=== PATIENT | male | born 1935 | race Caucasian/White ===

== ENCOUNTER 2017-08-19 15:27 | Inpatient (IN) | payer MEDICARE, OTHER ==
[~2017-08-19] VITALS: Ht 177.8 cm; Wt 113.3 kg
[2017-08-19 15:57] LABS: BASOPHILS % (AUTO) 0.3 % (0-1); EOSINOPHILS # (AUTO) 0.2 X10'3 (0-0.9); EOSINOPHILS % (AUTO) 1.9 % (0-6); HEMATOCRIT 38.7 % (42.0-52.0); HEMOGLOBIN 13.8 g/dl (14.0-17.9); LYMPHOCYTES # (AUTO) 1.3 X10'3 (1.1-4.8); LYMPHOCYTES % (AUTO) 13.3 % (21-51); MEAN CORPUSCULAR HEMOGLOBIN 34.1 PG (27.0-31.0); MEAN CORPUSCULAR HGB CONC 35.5 % (33.0-36.5); MEAN PLATELET VOLUME 8.8 FL (7.4-10.4); MONOCYTES # (AUTO) 0.6 X10'3 (0-0.9); NEUTROPHILS # (AUTO) 7.8 X10'3 (1.8-7.7); NEUTROPHILS % (AUTO) 78.5 % (42-75); PLATELET COUNT 197 X10'3 (140-440); RED BLOOD COUNT 4.03 X10'6 (4.70-6.10); RED CELL DISTRIBUTION WIDTH 13.1 % (11.5-14.5); WHITE BLOOD COUNT 9.9 X10'3 (4.5-11.0)
[2017-08-19 16:09] LABS: PARTIAL THROMBOPLASTIN TIME 25 SECONDS (22-32); PROTHROMBIN TIME 10.4 SECONDS (9.0-12.0)
[2017-08-19 16:15] LABS: ALANINE AMINOTRANSFERASE 47 U/L (12-78); ALBUMIN 3.7 G/DL (3.4-5.0); ALKALINE PHOSPHATASE 66 IU/L (46-116); ANION GAP 10 (8-16); ASPARTATE AMINO TRANSFERASE 35 U/L (10-37); BILIRUBIN,TOTAL 0.4 MG/DL (0.1-1.0); BLOOD UREA NITROGEN 30 MG/DL (7-18); BUN/CREATININE RATIO 18.2 (5.4-32.0); CALCIUM 9.2 MG/DL (8.5-10.1); CHLORIDE 104 MMOL/L (99-107); CREATININE 1.65 MG/DL (0.60-1.10); GLUCOSE 168 MG/DL (70-104); POTASSIUM 4.3 MMOL/L (3.5-5.1); SODIUM 142 MMOL/L (135-145); TOTAL CARBON DIOXIDE 27.6 MMOL/L (24-32); TOTAL PROTEIN 7.4 G/DL (6.4-8.2); TROPONIN I < 0.04 NG/ML (0.0-0.05); eGFR 40 ML/MIN
[2017-08-19] MEDS ORDERED: dextrose 5%-1/2 normal saline 1,000 ML IV SCH (17:39)
[2017-08-19] MEDS: normal saline 1000ml 1,000 ML IV SCH (17:39)
[2017-08-19] MEDS ORDERED: acetaminophen 325mg tablet PO PRN (17:40)
[2017-08-19] MEDS ORDERED: mag hydrox/Alum hydrox/simeth 30ml oral suspension PO PRN (17:40)
[2017-08-19] MEDS ORDERED: ondansetron/PF 4mg/2ml inj IV PRN (17:40)
[2017-08-19] MEDS ORDERED: magnesium hydroxide 30ml (MOM) UD suspension PO PRN (17:40)
[2017-08-19] MEDS ORDERED: OLME40TA13 PO (18:08)
[2017-08-19] MEDS ORDERED: FERR1GRA PO (18:08)
[2017-08-19] MEDS ORDERED: SYN0.088T PO (18:08)
[2017-08-19] MEDS ORDERED: P EP PO (18:08)
[2017-08-19] MEDS ORDERED: VERA120T7 PO (18:08)
[2017-08-19 18:15] LABS: HEMOGLOBIN A1C 6.6 % (4.5-6.2)
[2017-08-19 20:10] LABS: CLARITY,URINE CLEAR (Clear); COLOR,URINE YELLOW (Yellow); GLUCOSE, URINE NEGATIVE (Neg); KETONES,URINE TRACE mg/dl (Neg); LEUKOCYTE ESTERASE ,URINE NEGATIVE (Neg); NITRITES, URINE NEGATIVE (Neg); OCCULT BLOOD,URINE NEGATIVE (Neg); PROTEIN,URINE NEGATIVE (Neg); UROBILINOGEN,URINE 0.2 E.U/dL (0.2-1.0)
[2017-08-19 20:12] LABS: UA COLLECTION TYPE CLN CATCH MIDSTREAM
[2017-08-19 20:41] VITALS: BP 130/63
[2017-08-19 22:00] VITALS: BP 114/49
[2017-08-20 02:00] VITALS: BP 152/59
[2017-08-20 06:00] VITALS: BP 150/65
[2017-08-20 07:00] LABS: CHOLESTEROL 255 MG/DL (0-200); HDL CHOLESTEROL 32 MG/DL (35-60); LDL CHOLESTEROL 163 MG/DL (50-100); TRIGLYCERIDES 228 MG/DL (20-135)
[2017-08-20] MEDS: [UNRECOGNIZED DRUG - OTHER] PO SCH (08:00)
[2017-08-20] MEDS ORDERED: apixaban 2.5mg tablet PO SCH ×3 (08:50→20:00)
[2017-08-20] MEDS ORDERED: atorvastatin 20mg tablet PO SCH (08:50)
[2017-08-20 10:00] VITALS: BP 133/33
[2017-08-20] MEDS: atorvastatin 20mg tablet PO SCH (11:00)
[2017-08-20] MEDS: levoTHYROXINE 100mcg tablet PO SCH (11:01)
[2017-08-20] MEDS: losartan 50mg tablet PO SCH (11:01)
[2017-08-20] MEDS: aspirin 81mg tablet.DR PO SCH (11:01)
[2017-08-20 18:00] VITALS: BP 117/49
[2017-08-20] MEDS: normal saline 1000ml 1,000 ML IV SCH ×2 (20:58→22:15)
[2017-08-20] MEDS: apixaban 2.5mg tablet PO SCH (20:58)
[2017-08-20 22:00] VITALS: BP 123/60
[2017-08-21 02:29] VITALS: BP 161/67
[2017-08-21 06:00] VITALS: BP 149/68
[2017-08-21] MEDS: atorvastatin 20mg tablet PO SCH (07:45)
[2017-08-21] MEDS: aspirin 81mg tablet.DR PO SCH (07:45)
[2017-08-21] MEDS: levoTHYROXINE 100mcg tablet PO SCH (07:45)
[2017-08-21] MEDS: loratadine/pseudoephedrine TAB.SR.12Hour PO SCH (07:45)
[2017-08-21] MEDS: apixaban 2.5mg tablet PO SCH ×2 (07:45→19:36)
[2017-08-21] MEDS: losartan 50mg tablet PO SCH (07:45)
[2017-08-21] MEDS: [UNRECOGNIZED DRUG - OTHER] PO SCH (07:58)
[2017-08-21] MEDS ORDERED: amLODIPine 5mg tablet PO SCH (08:00)
[2017-08-21] MEDS: amLODIPine 5mg tablet PO SCH (08:40)
[2017-08-21] MEDS ORDERED: amLODIPine 5mg tablet PO ONE (08:55)
[2017-08-21] MEDS ORDERED: dextrose 5%-1/4 normal saline 1,000 ML IV SCH (09:15)
[2017-08-21 10:00] VITALS: BP 102/42
[2017-08-21] MEDS: normal saline 1000ml 1,000 ML IV SCH (10:05)
[2017-08-21 10:27] LABS: ALBUMIN 3.1 G/DL (3.4-5.0); ANION GAP 8 (8-16); BLOOD UREA NITROGEN 26 MG/DL (7-18); BUN/CREATININE RATIO 18.1 (5.4-32.0); CALCIUM 8.3 MG/DL (8.5-10.1); CHLORIDE 105 MMOL/L (99-107); CREATININE 1.44 MG/DL (0.60-1.10); GLUCOSE 179 MG/DL (70-104); POTASSIUM 4.1 MMOL/L (3.5-5.1); SODIUM 140 MMOL/L (135-145); TOTAL CARBON DIOXIDE 27.2 MMOL/L (24-32); eGFR 47 ML/MIN
[2017-08-21] MEDS: dextrose 5%-1/2 normal saline 1,000 ML IV SCH ×2 (13:18→23:56)
[2017-08-21 14:00] VITALS: BP 115/59
[2017-08-21 18:00] VITALS: BP 154/55
[2017-08-21] MEDS ORDERED: LORazepam 2 mg/ml vial IV PRN ×2 (20:45)
[2017-08-21 22:00] VITALS: BP 150/63
[2017-08-22 02:00] VITALS: BP 162/73
[2017-08-22] MEDS: normal saline 1000ml 1,000 ML IV SCH (02:51)
[2017-08-22 05:00] VITALS: BP 144/71
[2017-08-22] MEDS: [UNRECOGNIZED DRUG - OTHER] PO SCH (08:00)
[2017-08-22 08:57] VITALS: BP 123/60
[2017-08-22] MEDS: aspirin 81mg tablet.DR PO SCH (08:59)
[2017-08-22] MEDS: losartan 50mg tablet PO SCH (08:59)
[2017-08-22] MEDS: apixaban 2.5mg tablet PO SCH ×2 (08:59→19:38)
[2017-08-22] MEDS: loratadine/pseudoephedrine TAB.SR.12Hour PO SCH (08:59)
[2017-08-22] MEDS: levoTHYROXINE 100mcg tablet PO SCH (09:00)
[2017-08-22] MEDS: amLODIPine 5mg tablet PO SCH (09:00)
[2017-08-22] MEDS: atorvastatin 20mg tablet PO SCH (09:00)
[2017-08-22] MEDS: dextrose 5%-1/2 normal saline 1,000 ML IV SCH ×2 (09:01→19:38)
[2017-08-22 10:00] VITALS: BP 126/57
[2017-08-22 13:17] LABS: ALBUMIN 3.2 G/DL (3.4-5.0); ANION GAP 8 (8-16); BLOOD UREA NITROGEN 17 MG/DL (7-18); BUN/CREATININE RATIO 13.7 (5.4-32.0); CALCIUM 8.1 MG/DL (8.5-10.1); CHLORIDE 102 MMOL/L (99-107); CREATININE 1.24 MG/DL (0.60-1.10); GLUCOSE 166 MG/DL (70-104); POTASSIUM 4.1 MMOL/L (3.5-5.1); SODIUM 136 MMOL/L (135-145); TOTAL CARBON DIOXIDE 26.5 MMOL/L (24-32); eGFR 56 ML/MIN
[2017-08-22] MEDS ORDERED: iohexol 350MG/ML 100ml bottle IV ONE (14:57)
[2017-08-22 17:30] VITALS: BP 116/65
[2017-08-22 22:38] VITALS: BP 132/78
[2017-08-23] MEDS: dextrose 5%-1/2 normal saline 1,000 ML IV SCH (05:00)
[2017-08-23 07:00] VITALS: BP 147/72
[2017-08-23] MEDS: [UNRECOGNIZED DRUG - OTHER] PO SCH (08:00)
[2017-08-23] MEDS: loratadine/pseudoephedrine TAB.SR.12Hour PO SCH (08:15)
[2017-08-23] MEDS: apixaban 2.5mg tablet PO SCH (08:15)
[2017-08-23] MEDS: losartan 50mg tablet PO SCH (08:16)
[2017-08-23] MEDS: levoTHYROXINE 100mcg tablet PO SCH (08:16)
[2017-08-23] MEDS: amLODIPine 5mg tablet PO SCH (08:16)
[2017-08-23] MEDS: atorvastatin 20mg tablet PO SCH (08:17)
[2017-08-23] MEDS: aspirin 81mg tablet.DR PO SCH (08:26)
[2017-08-23 10:00] VITALS: BP 111/52
== END 2017-08-23 13:30 | DRG 65 ==
LOC: ER 15:28 → ED HOLD 17:39 → ORTHO 4S 19:49
PROVIDERS: ADMIT Internal Medicine; ATTEND Internal Medicine
PROC: B3251ZZ Computerized Tomography (CT Scan) of Bilateral Common Carotid Arteries using Low Osmolar Contrast (ICD-10-PCS; principal; 2017-08-22)
PROC: B32G1ZZ Computerized Tomography (CT Scan) of Bilateral Vertebral Arteries using Low Osmolar Contrast (ICD-10-PCS; 2017-08-22)
PROC: B3281ZZ Computerized Tomography (CT Scan) of Bilateral Internal Carotid Arteries using Low Osmolar Contrast (ICD-10-PCS; 2017-08-22)
DX: I63.232 Cerebral infarction due to unspecified occlusion or stenosis of left carotid arteries (principal); N17.9 Acute kidney failure, unspecified; I48.0 Paroxysmal atrial fibrillation; E11.9 Type 2 diabetes mellitus without complications; I10 Essential (primary) hypertension; G89.29 Other chronic pain; E03.9 Hypothyroidism, unspecified; E78.5 Hyperlipidemia, unspecified; M54.9 Dorsalgia, unspecified; K59.00 Constipation, unspecified; F17.200 Nicotine dependence, unspecified, uncomplicated; Z96.611 Presence of right artificial shoulder joint; Z96.612 Presence of left artificial shoulder joint; Z96.643 Presence of artificial hip joint, bilateral; Z96.653 Presence of artificial knee joint, bilateral; Z95.0 Presence of cardiac pacemaker; Z79.899 Other long term (current) drug therapy; Z80.9 Family history of malignant neoplasm, unspecified
CPT/HCPCS: 36415; 70450; 70496; 70498; 71045; 80048; 80053; 80061; 81003; 82948; 83036; 84439; 84443; 84484; 85025; 85610; 85730; 87070; 92616; 93005; 93306; 93880; 97110; 97116; 97161; 97530; 99285; A6212; J7030; Q9967

== ENCOUNTER 2017-10-29 17:49 | Inpatient (IN) | payer MEDICARE, OTHER ==
[~2017-10-29] VITALS: Ht 177.8 cm; Wt 95.5 kg
[~2017-10-29 17:49] MED LIST: FERR1GRA PO; OLME40TA13 PO; P EP PO; SYN0.088T PO; VERA120T7 PO
[2017-10-29] MEDS ORDERED: normal saline 1000ML IV soln IVB ONE (18:20)
[2017-10-29] MEDS ORDERED: ondansetron 4mg rapidly disintigrating tab PO ONE (18:20)
[2017-10-29 19:10] LABS: BASOPHILS % (AUTO) 0.2 % (0-1); EOSINOPHILS # (AUTO) 0.3 X10'3 (0-0.9); EOSINOPHILS % (AUTO) 2.1 % (0-6); HEMATOCRIT 36.8 % (42.0-52.0); HEMOGLOBIN 12.6 g/dl (14.0-17.9); LYMPHOCYTES # (AUTO) 0.8 X10'3 (1.1-4.8); LYMPHOCYTES % (AUTO) 6.6 % (21-51); MEAN CORPUSCULAR HEMOGLOBIN 33.1 PG (27.0-31.0); MEAN CORPUSCULAR HGB CONC 34.3 % (33.0-36.5); MEAN CORPUSCULAR VOLUME 96.4 FL (78-98); MEAN PLATELET VOLUME 9.3 FL (7.4-10.4); MONOCYTES # (AUTO) 0.7 X10'3 (0-0.9); MONOCYTES % (AUTO) 6.1 % (2-12); NEUTROPHILS # (AUTO) 10.2 X10'3 (1.8-7.7); PLATELET COUNT 206 X10'3 (140-440); RED BLOOD COUNT 3.81 X10'6 (4.70-6.10); RED CELL DISTRIBUTION WIDTH 13.2 % (11.5-14.5)
[2017-10-29 19:18] LABS: INR 1.1 INR; PROTHROMBIN TIME 11.8 SECONDS (9.0-12.0)
[2017-10-29 19:35] LABS: ALANINE AMINOTRANSFERASE 80 U/L (12-78); ALBUMIN 2.8 G/DL (3.4-5.0); ALBUMIN/GLOBULIN RATIO 0.7 (1.1-1.5); ALKALINE PHOSPHATASE 83 IU/L (46-116); ANION GAP 10 (8-16); ASPARTATE AMINO TRANSFERASE 53 U/L (10-37); BILIRUBIN,TOTAL 0.5 MG/DL (0.1-1.0); BLOOD UREA NITROGEN 24 MG/DL (7-18); BUN/CREATININE RATIO 18.5 (5.4-32.0); CALCIUM 9.1 MG/DL (8.5-10.1); CHLORIDE 103 MMOL/L (99-107); GLUCOSE 172 MG/DL (70-104); LIPASE 151 U/L (73-393); POTASSIUM 4.5 MMOL/L (3.5-5.1); SODIUM 138 MMOL/L (135-145); TOTAL CARBON DIOXIDE 24.6 MMOL/L (24-32); TOTAL PROTEIN 6.9 G/DL (6.4-8.2); eGFR 53 ML/MIN
[2017-10-29] MEDS ORDERED: piperacillin/tazo 3.375gm/50ml 50 ML IV ONE (22:00)
[2017-10-29] MEDS ORDERED: insulin Lispro (HumaLOG) vial - multi-dose SQ SCH (22:15)
[2017-10-29] MEDS ORDERED: dextrose ORAL solution 15 GM/59 ML bottle PO PRN ×2 (22:15)
[2017-10-29] MEDS ORDERED: dextrose 50%-water 50ml dispensing syringe IV PRN ×2 (22:15)
[2017-10-29] MEDS ORDERED: potassium Cl 40MEQ/NS 500ml 500 ML IV PRN ×2 (22:15)
[2017-10-29] MEDS ORDERED: mag hydrox/Alum hydrox/simeth 30ml oral suspension PO PRN (22:15)
[2017-10-29] MEDS ORDERED: glucagon, human recombinant 1mg kit SUBCUT PRN (22:15)
[2017-10-29] MEDS ORDERED: morphine 4 MG/ML inj SYRINge IV PRN ×2 (22:15)
[2017-10-29] MEDS ORDERED: magnesium hydroxide 30ml (MOM) UD suspension PO PRN (22:15)
[2017-10-29] MEDS ORDERED: ondansetron/PF 4mg/2ml inj IV PRN (22:15)
[2017-10-29] MEDS ORDERED: MESSAGE TO PHARMACY PO ONE (22:15)
[2017-10-29] MEDS ORDERED: potassium Cl 20 mEq SR tablet PO PRN ×2 (22:15)
[2017-10-29] MEDS ORDERED: magnesium 2GM in 50ml NS 50 ML IV PRN (22:15)
[2017-10-29] MEDS ORDERED: magnesium 4gm in 100ml NS 100 ML IV PRN (22:15)
[2017-10-29] MEDS ORDERED: acetaminophen 325mg tablet PO PRN (22:15)
[2017-10-29] MEDS ORDERED: magnesium Cl slow-release 64mg tablet PO PRN (22:15)
[2017-10-29] MEDS ORDERED: OLME40TA18 PO (23:35)
[2017-10-29] MEDS ORDERED: RIVA15TA PO (23:35)
[2017-10-29] MEDS ORDERED: VERA180T PO (23:35)
[2017-10-29] MEDS ORDERED: LEVO200T8 PO (23:35)
[2017-10-29] MEDS ORDERED: LORA10TA7 PO (23:38)
[2017-10-29] MEDS ORDERED: OMEP40CA37 PO (23:38)
[2017-10-29] MEDS ORDERED: CHOL5000 PO (23:38)
[2017-10-29] MEDS ORDERED: LORA-641 (23:38)
[2017-10-29] MEDS: normal saline 1000ml 1,000 ML IV SCH (23:41)
[2017-10-30 00:15] VITALS: BP 139/94
[2017-10-30 00:34] LABS: CLARITY,URINE CLEAR (Clear); COLOR,URINE YELLOW (Yellow); GLUCOSE, URINE NEGATIVE (Neg); KETONES,URINE TRACE mg/dl (Neg); LEUKOCYTE ESTERASE ,URINE NEGATIVE (Neg); NITRITES, URINE NEGATIVE (Neg); OCCULT BLOOD,URINE TRACE-INTACT (Neg); PROTEIN,URINE NEGATIVE (Neg); UROBILINOGEN,URINE 0.2 E.U/dL (0.2-1.0)
[2017-10-30 00:37] LABS: UA COLLECTION TYPE CLN CATCH MIDSTREAM
[2017-10-30 00:41] LABS: RBC,URINE 0-2 /HPF (0-2); SQUAMOUS EPITHELIAL CELL,UR FEW /LPF (FEW); URIC ACID CRYSTALS 2+ /HPF (NEGATIVE); WBC,URINE 0-4 /HPF (0-4)
[2017-10-30 00:42] LABS: BACTERIA,URINE FEW /HPF (Neg)
[2017-10-30] MEDS: metroNIDAZOLE-Flagyl 500mg/NS 100 ML IV SCH ×2 (00:51→08:01)
[2017-10-30] MEDS: normal saline 1000ml 1,000 ML IV SCH (00:52)
[2017-10-30] MEDS ORDERED: piperacillin/tazo 3.375gm/50ml 50 ML IV ONE (02:43)
[2017-10-30] MEDS: piperacillin/tazo 3.375gm/50ml 50 ML IV SCH ×4 (02:50→20:28)
[2017-10-30 05:00] VITALS: BP 129/69
[2017-10-30] MEDS: docusate sod 100mg capsule PO SCH ×2 (07:10→20:00)
[2017-10-30 07:11] LABS: MAGNESIUM 1.7 MG/DL (1.5-2.4); POTASSIUM 4.4 MMOL/L (3.5-5.1)
[2017-10-30] MEDS: enoxaparin 40mg/0.4ml syringe SQ SCH (07:11)
[2017-10-30] MEDS: pantoprazole 40mg Tablet.DR PO SCH (07:14)
[2017-10-30] MEDS: K and/or MAG REPLACEMENT MC SCH (08:00)
[2017-10-30 10:00] VITALS: BP_SYST 62
[2017-10-30] MEDS ORDERED: FERR325T32 PO (15:51)
[2017-10-30] MEDS ORDERED: OMEP20TA23 PO (15:56)
[2017-10-30] MEDS ORDERED: ERGO500014 PO (16:04)
[2017-10-30 17:00] VITALS: BP 133/58
[2017-10-30] MEDS: loratadine/pseudoephedrine TAB.SR.12Hour PO SCH (20:27)
[2017-10-30] MEDS: insulin glargine (Lantus) pen - multi-dose SQ SCH (21:00)
[2017-10-30 22:00] VITALS: BP 117/69
[2017-10-31] MEDS: piperacillin/tazo 3.375gm/50ml 50 ML IV SCH ×4 (01:29→19:57)
[2017-10-31] MEDS: normal saline 1000ml 1,000 ML IV SCH (03:35)
[2017-10-31 05:00] VITALS: BP 149/61
[2017-10-31 06:09] LABS: BASOPHILS % (AUTO) 0.3 % (0-1); EOSINOPHILS # (AUTO) 0.2 X10'3 (0-0.9); EOSINOPHILS % (AUTO) 2.3 % (0-6); HEMATOCRIT 30.6 % (42.0-52.0); HEMOGLOBIN 10.5 g/dl (14.0-17.9); LYMPHOCYTES % (AUTO) 12.1 % (21-51); MEAN CORPUSCULAR HEMOGLOBIN 32.9 PG (27.0-31.0); MEAN CORPUSCULAR HGB CONC 34.4 % (33.0-36.5); MEAN CORPUSCULAR VOLUME 95.8 FL (78-98); MEAN PLATELET VOLUME 8.7 FL (7.4-10.4); MONOCYTES # (AUTO) 0.6 X10'3 (0-0.9); MONOCYTES % (AUTO) 7.5 % (2-12); NEUTROPHILS # (AUTO) 6.4 X10'3 (1.8-7.7); NEUTROPHILS % (AUTO) 77.8 % (42-75); PLATELET COUNT 171 X10'3 (140-440); RED BLOOD COUNT 3.19 X10'6 (4.70-6.10); RED CELL DISTRIBUTION WIDTH 13.3 % (11.5-14.5); WHITE BLOOD COUNT 8.2 X10'3 (4.5-11.0)
[2017-10-31 06:50] LABS: ALANINE AMINOTRANSFERASE 54 U/L (12-78); ALBUMIN 2.3 G/DL (3.4-5.0); ALBUMIN/GLOBULIN RATIO 0.7 (1.1-1.5); ALKALINE PHOSPHATASE 56 IU/L (46-116); ANION GAP 10 (8-16); ASPARTATE AMINO TRANSFERASE 25 U/L (10-37); BILIRUBIN,TOTAL 0.5 MG/DL (0.1-1.0); BLOOD UREA NITROGEN 16 MG/DL (7-18); BUN/CREATININE RATIO 11.8 (5.4-32.0); CALCIUM 8.3 MG/DL (8.5-10.1); CHLORIDE 107 MMOL/L (99-107); CREATININE 1.36 MG/DL (0.60-1.10); GLUCOSE 144 MG/DL (70-104); MAGNESIUM 1.6 MG/DL (1.5-2.4); PHOSPHORUS 3.6 MG/DL (2.3-4.5); POTASSIUM 4.1 MMOL/L (3.5-5.1); SODIUM 141 MMOL/L (135-145); TOTAL CARBON DIOXIDE 24.5 MMOL/L (24-32); TOTAL PROTEIN 5.8 G/DL (6.4-8.2); eGFR 50 ML/MIN
[2017-10-31 07:37] VITALS: BP 105/62
[2017-10-31] MEDS: pantoprazole 40mg Tablet.DR PO SCH (07:38)
[2017-10-31] MEDS: levoTHYROXINE 100mcg tablet PO SCH (07:38)
[2017-10-31] MEDS: verapamil SR 180mg tablet PO SCH (07:39)
[2017-10-31] MEDS: rivaroxaban 15mg tablet PO SCH (07:39)
[2017-10-31] MEDS: loratadine/pseudoephedrine TAB.SR.12Hour PO SCH ×2 (07:39→19:42)
[2017-10-31] MEDS: ferrous sulfate 325mg tablet PO SCH (07:40)
[2017-10-31] MEDS: docusate sod 100mg capsule PO SCH ×2 (07:40→19:41)
[2017-10-31] MEDS: losartan 50mg tablet PO SCH (07:40)
[2017-10-31] MEDS: enoxaparin 40mg/0.4ml syringe SQ SCH (07:41)
[2017-10-31] MEDS: K and/or MAG REPLACEMENT MC SCH (08:00)
[2017-10-31 10:00] VITALS: BP 116/60
[2017-10-31 18:00] VITALS: BP 123/71
[2017-10-31] MEDS: lactobacillus rhamnosus 10,000 MMU CELLS/CAPSULE PO SCH (19:42)
[2017-10-31] MEDS: insulin glargine (Lantus) pen - multi-dose SQ SCH (21:00)
[2017-10-31 22:00] VITALS: BP 123/60
[2017-11-01] MEDS: piperacillin/tazo 3.375gm/50ml 50 ML IV SCH ×2 (02:07→07:26)
[2017-11-01 05:00] VITALS: BP 149/77
[2017-11-01 06:09] LABS: BASOPHILS % (AUTO) 0.4 % (0-1); EOSINOPHILS # (AUTO) 0.3 X10'3 (0-0.9); EOSINOPHILS % (AUTO) 3.1 % (0-6); HEMATOCRIT 33.8 % (42.0-52.0); HEMOGLOBIN 11.6 g/dl (14.0-17.9); LYMPHOCYTES # (AUTO) 1.4 X10'3 (1.1-4.8); LYMPHOCYTES % (AUTO) 13.2 % (21-51); MEAN CORPUSCULAR HEMOGLOBIN 32.8 PG (27.0-31.0); MEAN CORPUSCULAR HGB CONC 34.2 % (33.0-36.5); MEAN CORPUSCULAR VOLUME 95.8 FL (78-98); MONOCYTES # (AUTO) 0.7 X10'3 (0-0.9); MONOCYTES % (AUTO) 6.5 % (2-12); NEUTROPHILS # (AUTO) 8.2 X10'3 (1.8-7.7); NEUTROPHILS % (AUTO) 76.8 % (42-75); PLATELET COUNT 239 X10'3 (140-440); RED BLOOD COUNT 3.53 X10'6 (4.70-6.10); RED CELL DISTRIBUTION WIDTH 13.4 % (11.5-14.5); WHITE BLOOD COUNT 10.7 X10'3 (4.5-11.0)
[2017-11-01 06:27] LABS: ALANINE AMINOTRANSFERASE 47 U/L (12-78); ALBUMIN 2.7 G/DL (3.4-5.0); ALBUMIN/GLOBULIN RATIO 0.7 (1.1-1.5); ALKALINE PHOSPHATASE 62 IU/L (46-116); ANION GAP 10 (8-16); ASPARTATE AMINO TRANSFERASE 22 U/L (10-37); BILIRUBIN,TOTAL 0.4 MG/DL (0.1-1.0); BLOOD UREA NITROGEN 19 MG/DL (7-18); BUN/CREATININE RATIO 11.9 (5.4-32.0); CALCIUM 8.9 MG/DL (8.5-10.1); CHLORIDE 105 MMOL/L (99-107); GLUCOSE 140 MG/DL (70-104); MAGNESIUM 1.7 MG/DL (1.5-2.4); PHOSPHORUS 3.7 MG/DL (2.3-4.5); POTASSIUM 4.4 MMOL/L (3.5-5.1); SODIUM 140 MMOL/L (135-145); TOTAL CARBON DIOXIDE 24.6 MMOL/L (24-32); TOTAL PROTEIN 6.5 G/DL (6.4-8.2); eGFR 41 ML/MIN
[2017-11-01] MEDS: K and/or MAG REPLACEMENT MC SCH (07:03)
[2017-11-01] MEDS: docusate sod 100mg capsule PO SCH (07:15)
[2017-11-01 07:24] VITALS: BP 125/67
[2017-11-01] MEDS: levoTHYROXINE 100mcg tablet PO SCH (07:26)
[2017-11-01] MEDS: pantoprazole 40mg Tablet.DR PO SCH (07:26)
[2017-11-01] MEDS: rivaroxaban 15mg tablet PO SCH (07:26)
[2017-11-01] MEDS: losartan 50mg tablet PO SCH (07:27)
[2017-11-01] MEDS: loratadine/pseudoephedrine TAB.SR.12Hour PO SCH (07:27)
[2017-11-01] MEDS: verapamil SR 180mg tablet PO SCH (07:27)
[2017-11-01] MEDS: ferrous sulfate 325mg tablet PO SCH (07:27)
[2017-11-01] MEDS: lactobacillus rhamnosus 10,000 MMU CELLS/CAPSULE PO SCH (07:27)
[2017-11-01] MEDS: enoxaparin 40mg/0.4ml syringe SQ SCH (07:28)
[2017-11-01 08:16] VITALS: BP 122/64
[2017-11-01 10:00] VITALS: BP 98/51
[2017-11-01] MEDS: normal saline 1000ml 1,000 ML IV SCH (10:46)
[2017-11-01] MEDS ORDERED: AMOX1TAB15 PO (15:18)
[2017-11-01] MEDS: amox tr/potassium clavulanate 500mg/125mg TAB PO SCH ×2 (16:00→16:50)
== END 2017-11-01 19:20 | disposition home health service (06) | DRG 438 ==
LOC: ER 17:49 → ED HOLD 22:14 → ORTHO 4S 23:59
PROVIDERS: ADMIT Internal Medicine; ATTEND Family Medicine
DX: K85.90 Acute pancreatitis without necrosis or infection, unspecified (principal); G93.40 Encephalopathy, unspecified; I48.91 Unspecified atrial fibrillation; F05 Delirium due to known physiological condition; K65.4 Sclerosing mesenteritis; N39.0 Urinary tract infection, site not specified; E11.9 Type 2 diabetes mellitus without complications; G89.29 Other chronic pain; M54.9 Dorsalgia, unspecified; E03.9 Hypothyroidism, unspecified; F03.90 Unspecified dementia, unspecified severity, without behavioral disturbance, psychotic disturbance, mood disturbance, and anxiety; I10 Essential (primary) hypertension; Z95.0 Presence of cardiac pacemaker; Z79.01 Long term (current) use of anticoagulants; Z79.899 Other long term (current) drug therapy; Z79.82 Long term (current) use of aspirin; Z86.73 Personal history of transient ischemic attack (TIA), and cerebral infarction without residual deficits
CPT/HCPCS: 36415; 70450; 71045; 74176; 80053; 81001; 82948; 83036; 83605; 83690; 83735; 84100; 84132; 84443; 84484; 85025; 85610; 87040; 87070; 93005; 96361; 96365; 97116; 97162; 97530; 99285; A6209; A6212; J1650; J1815; J2270; J2543; J3490; J7030